=== PATIENT | male | born 1995 | race Caucasian/White ===

== ENCOUNTER 2016-11-06 11:09 | Emergency (ER) | payer OTHER ==
[~2016-11-06 11:09] MED LIST: KEFLEX500 M4 PO; MULTIVITAMIN1 CAP; NORCO 5-325 TA1 EACH PO; [UNRECOGNIZED DRUG - OTHER]
[2016-11-06] MEDS ORDERED: NO HOME MEDICATION XX (12:03)
[2016-11-06 12:26] LABS: ANION GAP 16 mmol/L (0-20); BLOOD UREA NITROGEN 14 mg/dl (6-24); CALCIUM 9.5 mg/dl (8.5-10.5); CARBON DIOXIDE-VENOUS 22 mmol/L (22-32); CHLORIDE 106 mmol/l (96-110); CREATININE 1.26 mg/dl (0.60-1.30); GLUCOSE 138 mg/dL (70-110); SODIUM 140 mmol/L (135-145); eGFR VALUE FOR BLACK >90 mL/Min
[2016-11-06 12:31] LABS: BASO % 0.2 % (0-2); EOS % 0.3 % (0-7); HCT-HEMATOCRIT 45.1 % (36.0-53.5); HGB-HEMOGLOBIN 16.8 gm/dl (13.5-17.0); IMMATURE GRANULOCYTES ABSOLUTE 0.02 tho/cmm (0-0.03); IMMATURE GRANULOCYTES PERCENT 0.2 % (0-0.3); LYMPH % 22.2 % (20-45); MCH (MEAN CORPUSCULAR HGB) 31.3 pg (28.0-32.0); MEAN PLATELET VOLUME 9.2 cmc (9.4-12.4); MONO % 6.9 % (0-12); MONOCYTE ABSOLUTE COUNT 0.6 tho/cmm (0.0-1.2); NEUTROPHIL ABSOLUTE COUNT 6.2 tho/cmm (1.6-8.0); NEUTROPHIL-AUTOMATED 6.2 tho/cmm (1.6-8.0); NEUTROPHILS % 70.2 % (40-80); PLATELET COUNT 258 tho/cmm (150-450); POTASSIUM 3.5 mmol/L (3.7-5.1); RED BLOOD COUNT 5.37 mil/cmm (4.40-5.70); RED CELL DISTRIBUTION WIDTH 12.1 % (12.4-16.4); WHITE BLOOD COUNT 8.9 tho/cmm (4.0-10.0)
[2016-11-06 12:32] LABS: MCHC MEAN CORPUSCULAR HGB CONC 37.3 % (32.0-36.0)
[2016-11-06] MEDS ORDERED: RELPAX20 M1 PO (15:33)
== END 2016-11-06 16:12 ==
LOC: EDMED 11:09
PROVIDERS: Emergency Medicine
DX: G43.909 Migraine, unspecified, not intractable, without status migrainosus (principal); R06.4 Hyperventilation; Z90.10 Acquired absence of unspecified breast and nipple
CPT/HCPCS: J1200; J1885; J2060; J2270; J2405; J3030; J7030